=== PATIENT | female | born 1930 | race Two or more races ===

== ENCOUNTER 2017-02-13 16:06 | Inpatient (IN) | payer MEDICARE, MEDICAID ==
[~2017-02-13] VITALS: Ht 149.9 cm; Wt 35.4 kg
[~2017-02-13 16:06] MED LIST: ACETAMINOPHEN120 MG RECTAL; ARICEPT5 MG PO; ATIVAN0.5 MG PO; CLONIDINE0.1 MG PO; DEPAKOTE125 MG PO; ENALAPRIL MALEA20 MG PO; HYDRALAZINE HCL25 M1 PO; LOVENOX10 MG SUBQ; MULTIVITAMINS1 EAC8 PO; RISPERDAL0.5 MG PO; ROCEPHIN 11 GM/50 ML IVPB; TYLENOL325 MG ORAL; TYLENOL650 MG/20. ORAL; VICODIN 5-3001 EACH ORAL; VITAMIN C500 M1 ORAL
[2017-02-13 16:31] LABS: MEAN CORPUSCULAR HEMOGLOBIN 27.5 PG (27.0-31.0); MEAN CORPUSCULAR HGB CONC 31.1 G/DL (32.0-36.0); MEAN CORPUSCULAR VOLUME 88 FL (80-99); MEAN PLATELET VOLUME 6.7 FL (6.5-10.1); PLATELET COUNT 316 K/UL (150-450); RED BLOOD COUNT 5.33 M/UL (4.20-5.40); RED CELL DISTRIBUTION WIDTH 16.7 % (11.6-14.8)
--- NOTE | 2017-02-13 16:34 | Diagnostic Imaging Report ---
Indication: SOB Technique: One view of the chest Comparison: 12/08/2012 and 10/14/2012 Findings: Questionable one or more nodular opacities seen in the left midlung. Larger of these is probably evident on the 10/14/2012 prior exam, but is equivocally larger and more conspicuous currently. The lungs and pleural spaces are otherwise clear. There are cholecystectomy clips. The heart size is normal. The aorta is tortuous and calcified. There are old posttraumatic changes of the right and possibly left shoulder Impression: One or more left midlung nodules, equivocally increased since prior exam of 2012. Consider further evaluation with chest CT if clinically indicated No acute process otherwise Other findings as noted
[2017-02-13 16:46] LABS: TROPONIN I < 0.30 ng/mL (<=0.30)
[2017-02-13 16:49] VITALS: BP 107/55
[2017-02-13 16:49] LABS: ALANINE AMINOTRANSFERASE 42 U/L (3-33); ALBUMIN/GLOBULIN RATIO 0.7 (1.0-2.7); ANION GAP 21 (5-15); ASPARTATE AMINO TRANSFERASE 51 U/L (5-40); CALCIUM 9.2 mg/dL (8.6-10.2); CARBON DIOXIDE 18 mEQ/L (20-30); CHLORIDE 129 mEQ/L (98-107); CREATININE 2.4 mg/dL (0.5-0.9); HEMOLYSIS 74; POTASSIUM 4.8 mEQ/L (3.4-4.9)
[2017-02-13 16:57] LABS: SODIUM 168 mEQ/L (135-145)
[2017-02-13 16:59] LABS: REFLEX LACTIC ACID YES OR NO YES
[2017-02-13 17:00] LABS: CKMB 2.2 ng/mL (< 3.8)
[2017-02-13] MEDS ORDERED: Cefepime HCl 1 GM in NS 55 ML IV ONE (17:00)
[2017-02-13] MEDS ORDERED: Azithromycin 500 MG in NS 275 ML IV ONE (17:00)
[2017-02-13] MEDS ORDERED: Cefepime 1gm vial ONE (17:06)
[2017-02-13] MEDS ORDERED: Azithromycin Inj IV ONE (17:06)
[2017-02-13 17:52] VITALS: BP 95/66
[2017-02-13 18:23] LABS: ANISOCYTOSIS 1+; BAND NEUTROPHILS % (MANUAL) 2 % (0-8); BASOPHILS % (MANUAL) 0 % (0-2); EOSINOPHILS % (MANUAL) 0 % (0-3); LYMPHOCYTES % (MANUAL) 22 % (20-45); NEUTROPHILS % (MANUAL) 72 % (45-75); PLATELET ESTIMATE ADEQUATE; PLATELET MORPHOLOGY NORMAL; TOTAL CELLS COUNTED 100
--- NOTE | 2017-02-13 18:28 | Emergency Room Report ---
History of Present Illness General Chief Complaint: Dyspnea/Respdistress Source: Medical Record, EMS Present Illness HPI 86-year-old female presents to ED for respiratory distress. Patient came from [facility] with shortness of breath. Today. Per EMS patient had crackles on exam. Patient has dementia and is unable to provide any history at this time. No reported fevers chills. No chest pain. No aggravating relieving factors. Denies any other associated symptoms Allergies: Coded Allergies: No Known Allergies (Unverified , 10/14/12) Patient History Past Medical History: HTN, dementia, psych hx Past Surgical History: none Pertinent Family History: none Social History: Denies: alcohol use, drug use, smoking Last Menstrual Period: na Now: No Immunizations: UTD Reviewed Nursing Documentation: PMH: Agreed, PSxH: Agreed Nursing Documentation-PMH Past Medical History: No History, Except For Hx Cardiac Problems: Yes - anemia Hx Hypertension: Yes History Of Psychiatric Problem: Yes - psychosis Hx Neurological Problems: Yes - Parkinsons Hx Dementia: Yes Hx Paralysis: Yes Review of Systems All Other Systems: negative except mentioned in HPI Physical Exam Vital Signs Date Time Temp Pulse Resp B/P Pulse Ox O2 Delivery O2 Flow Rate FiO2 02/13/17 16:03 126 30 104/76 85 Non-Rebreather 02/13/17 16:10 100 02/13/17 16:49 102.3 Sp02 EP Interpretation: reviewed, normal General Appearance: mild distress, thin Head: normocephalic Eyes: bilateral eye PERRL, bilateral eye normal inspection ENT: normal ENT inspection Neck: normal inspection Respiratory: accessory muscle use, crackles Cardiovascular #1: tachycardia Gastrointestinal: normal inspection Rectal: deferred Genitourinary: no CVA tenderness Musculoskeletal: normal inspection Neurologic: other - psychosis Psychiatric: other - psychosis Skin: normal inspection Lymphatic: normal inspection Procedures Critical Care Time Critical Care Time i. I feel this is a highly complex case requiring extensive working including EKG/Rhythm strip, Xray/CT/US, Blood/urine lab work, repeat exams while in ED, and administration of strong opiates/narcotics for pain control, admission to hospital or close patient follow up. Total time: 30 min bedside evaluation and treatment excludes procedures (EKG). Reason for critical care: respiratory distress. tachycardia Possible complications: hypotension, hypertension, LA, shock, arrhythmias, metabolic acidosis, end organ damage, respiratory failure. Interventions: labs, IVFs, EKG, CXR. BIPAP. antibiotics Course: patient here with resp distress. started on BIPAP. lactate markedly elevated. BUN/Cr elevated. abx given. Consultations: nursing staff, EMS, family Performed by: Dr Fitzgerald Tolerated well condition = serious j. because of unstable vital signs this patient had a condition that could potentially threaten life or limb. I feel this is a critical patient who required my full attention while patient was considered critical. Total Critical Care Time excluding procedures was greater than 35 minutes Medical Decision Making Diagnostic Impression: Primary Impression: Encephalopathy acute Additional Impressions: Respiratory distress Severe sepsis Acute renal failure (ARF) Qualified Codes: N17.9 - Acute kidney failure, unspecified ER Course Hospital Course 86-year-old F presenting to ED with respiratory distress, hypoxic Differential diagnoses include: Pneumonia, CHF exacerbation, pneumothorax, fluid overload Clinical course Patient placed on stretcher. On playground monitor with hypoxia on room air and tachycardia. After initial history and physical, I ordered BIPAP. I ordered labs, IV fluids, EKG, chest x-ray, blood cultures, UA. Labs -leukocytosis noted, hemoglobin/hematocrit stable, BUN/cR elevated, lactate > 5, BNP elevated, Troponins negative CXR - no infiltrate identified. L midlung nodules noted EKG - sinus tachycardia, ST depressions noted given abx. given tachycardia improving with IV fluids. given tylenol rectal Case discussed with Dr. Cardoza and he agreed to the patient to his service for further care and support I feel this is a highly complex case requiring extensive working including EKG/ Rhythm strip, Xray/CT/US, Blood/urine lab work, repeat exams while in ED, and administration of strong opiates/narcotics for pain control, admission to hospital or close patient follow up. Diagnosis - acute encepahlopathy, respiratory distress, severe sepsis, ARF Patient admitted to [facility] in serious condition Labs Test 02/13/17 16:11 02/13/17 17:00 White Blood Count 21.0 K/UL (4.8-10.8) Red Blood Count 5.33 M/UL (4.20-5.40) Hemoglobin 14.7 G/DL (12.0-16.0) Hematocrit 47.1 % (37.0-47.0) Mean Corpuscular Volume 88 FL (80-99) Mean Corpuscular Hemoglobin 27.5 PG (27.0-31.0) Mean Corpuscular Hemoglobin Concent 31.1 G/DL (32.0-36.0) Red Cell Distribution Width 16.7 % (11.6-14.8) Platelet Count 316 K/UL (150-450) Mean Platelet Volume 6.7 FL (6.5-10.1) Neutrophils (%) (Auto) % (45.0-75.0) Lymphocytes (%) (Auto) % (20.0-45.0) Monocytes (%) (Auto) % (1.0-10.0) Eosinophils (%) (Auto) % (0.0-3.0) Basophils (%) (Auto) % (0.0-2.0) Sodium Level 168 mEQ/L (135-145) Potassium Level 4.8 mEQ/L (3.4-4.9) Chloride Level 129 mEQ/L (98-107) Carbon Dioxide Level 18 mEQ/L (20-30) Anion Gap 21 (5-15) Blood Urea Nitrogen 80 mg/dL (7-23) Creatinine 2.4 mg/dL (0.5-0.9) Estimat Glomerular Filtration Rate mL/min (>60) Glucose Level 218 mg/dL (74-106) Lactic Acid Level 5.90 mmol/L (0.66-2.22) 6.30 mmol/L (0.66-2.22) Calcium Level 9.2 mg/dL (8.6-10.2) Total Bilirubin 0.6 mg/dL (0.0-1.2) Aspartate Amino Transf (AST/SGOT) 51 U/L (5-40) Alanine Aminotransferase (ALT/SGPT) 42 U/L (3-33) Alkaline Phosphatase 90 U/L (35-104) Total Creatine Kinase 41 U/L (26-140) Creatine Kinase MB 2.2 ng/mL (< 3.8) Creatine Kinase MB Relative Index 5.3 Troponin I < 0.30 ng/mL (<=0.30) Pro-B-Type Natriuretic Peptide 5951 pg/mL (0-450) Total Protein 8.0 g/dL (6.6-8.7) Albumin 3.5 g/dL (3.5-5.2) Globulin 4.5 g/dL Albumin/Globulin Ratio 0.7 (1.0-2.7) EKG Diagnostic Results Rate: tachycardiac Rhythm: NSR ST Segments: other - ST depressions in lateral leads ASA given to the pt in ED: No Rhythm Strip Diag. Results EP Interpretation: yes Rhythm: NSR, no PVC's, no ectopy Chest X-Ray Diagnostic Results Chest X-Ray Ordered: Yes # of Views/Limited/Complete: 1 View Interpretation: no consolidation, no effusion, no pneumothorax, no acute cardiopulmonary disease Indication: Shortness of Breath Impression: Other - left midlung nodules Date Electronically Signed: Feb 13, 2017 Time Electronically Signed: 18:24 Interpreting ER Physician: Avtar Hubbard MD Last Vital Signs Date Time Temp Pulse Resp B/P Pulse Ox O2 Delivery O2 Flow Rate FiO2 02/13/17 17:52 100 38 95/66 99 Bi-pap 100 02/13/17 16:49 102.3 Status: improved Disposition: ADMITTED INPATIENT Condition: Serious Referrals: JADYN WALLIS (PCP) AVTAR FITZGERALD M.D. Feb 13, 2017 18:28
[2017-02-13] MEDS ORDERED: Acetaminophen 650 MG SUPP RECTAL ONE (18:30)
[2017-02-13 19:15] VITALS: BP 160/88
[2017-02-13] MEDS ORDERED: DOCUSATE SODIU100 MG ORAL (19:20)
[2017-02-13] MEDS ORDERED: ACETAMINOPHEN325 M1 ORAL (19:20)
[2017-02-13] MEDS ORDERED: CATAPRES0.1 MG ORAL (19:20)
[2017-02-13] MEDS ORDERED: PRO-STAT AWC LI30 ML PO (19:20)
[2017-02-13] MEDS ORDERED: MILK OF MA2400 MG/10 ORAL (19:20)
[2017-02-13] MEDS ORDERED: ALENDRONATE SOD70 MG ORAL (19:20)
[2017-02-13] MEDS ORDERED: CALCIUM 500 +1 EAC5 PO (19:20)
[2017-02-13 20:00] VITALS: BP 143/86
[2017-02-13] MEDS ORDERED: DuoNeb 0.5-3(2.5)mg/3ml neb HHN PRN (20:00)
[2017-02-13 20:14] LABS: ABG ALLEN TEST POSITIVE; ABG BASE EXCESS -7.6
[2017-02-13] MEDS ORDERED: Vancomycin 1gm/D5W 275ml IVPB ONE ×2 (21:00)
[2017-02-13] MEDS: Heparin 5000 units/ml inj SUBQ SCH (21:33)
[2017-02-13] MEDS: Piperacillin/Tazobactam 3.375 GM in D5W 110 ML IVPB SCH (22:50)
[2017-02-14] VITALS (7 sets, daily range): BP systolic 115–156; BP diastolic 61–99
[2017-02-14] MEDS: Docusate 100mg cap ORAL SCH ×2 (08:10→17:04)
[2017-02-14] MEDS: Multivitamin w/Minerals tab ORAL SCH (08:11)
[2017-02-14] MEDS: Heparin 5000 units/ml inj SUBQ SCH ×2 (08:17→21:41)
[2017-02-14] MEDS: Piperacillin/Tazobactam 3.375 GM in D5W 110 ML IVPB SCH ×2 (08:17→21:39)
[2017-02-14 08:53] LABS: ABG ALLEN TEST POSITIVE; ABG BASE EXCESS -7.6; ABG PCO2 27.1 mmHg (35.0-45.0)
--- NOTE | 2017-02-14 10:00 | History and Physical Report ---
DATE OF ADMISSION: 02/13/2017 CHIEF COMPLAINT: Respiratory failure, pneumonia, sepsis and toxic metabolic encephalopathy. HISTORY OF PRESENT ILLNESS: The patient is an 86-year-old female. She has a history of dementia, chronic kidney disease, prior history of femur fracture, anemia, and encephalopathy. She was transferred from a care home facility with shortness of breath. On evaluation in the emergency room, the patient had an x-ray that showed pneumonia. She was short of breath and hypoxic eventually require placement on the BiPAP. Laboratory test showed severe lactic acidosis. Sodium 168 and creatinine of 2.4. The patient has been started on BiPAP, fluid resuscitation, and broad-spectrum IV antibiotics and is now admitted for further evaluation and care. She is confused at baseline history. PAST MEDICAL HISTORY: As above. PAST SURGICAL HISTORY: Unknown. MEDICATIONS: Current medications reconciled and reviewed. ALLERGIES: None, SOCIAL HISTORY: There is no known history of tobacco, ethanol, or drugs. FAMILY HISTORY: None. REVIEW OF SYSTEMS: Review of systems from the patient is unobtainable. PHYSICAL EXAMINATION: VITAL SIGNS: Temperature 98.0 degrees, blood pressure 142/88, pulse of 84, and respirations 20. GENERAL: The patient is in no distress. She is on BiPAP and alert. NECK: Supple. HEART: Regular rate and rhythm. LUNGS: Lungs are clear. ABDOMEN: Soft, nontender and nondistended. EXTREMITIES: Without clubbing, cyanosis, or edema. LABORATORY DATA: Sodium is 168, potassium 4.8, chloride 129, bicarb 18, BUN 80, creatinine is 2.4 and lactic acid level is 6.3. Natriuretic peptide level was 6000. ASSESSMENT: This is an unfortunate female admitted with: 1. Sepsis. 2. Pneumonia. 3. Respiratory failure. 4. Hypernatremia. 5. Acute renal failure. 6. Toxic metabolic encephalopathy. 7. Severe metabolic acidosis secondary to lactic acidosis. PLAN: Continue BiPAP. We will wean IV fluids, IV antibiotics. Monitor renal function. Monitor chest x-ray. We will follow pending cultures. I have attempted to call the patient's grandson and son, but there has been no answer on their cell phones. The patient's status is currently critical and guarded. She is apparently Full Code. Amado Cardoza M.D. DR: [place] JOB#: [id number] CC:
[2017-02-14 16:31] LABS: KETONES,URINE NEGATIVE (NEGATIVE); LEUKOCYTE ESTERASE ,URINE 3+ (NEGATIVE); NITRITE,URINE NEGATIVE (NEGATIVE); PH,URINE 6 (4.5-8.0); PROTEIN,URINE 3+ (NEGATIVE); UROBILINOGEN,URINE NORMAL MG/DL (0.0-1.0)
[2017-02-14 16:48] LABS: APPEARANCE,URINE CLOUDY
[2017-02-14 16:49] LABS: BACTERIA,URINE MANY /HPF; RBC,URINE 60-80 /HPF (0 - 2); SQUAMOUS EPITHELIAL CELL,UR FEW /LPF (NONE/OCC); WBC,URINE TNTC /HPF (0 - 2)
[2017-02-14] MEDS ORDERED: Azithromycin 250 MG in D5W 275 ML IV SCH (17:00)
--- NOTE | 2017-02-14 21:30 | Progress Note ---
DATE: 02/14/2017 CARDIOLOGY PROGRESS NOTE: SUBJECTIVE: The patient remains withdrawn and noncommunicative. She continues to be remained with severe electrolyte disturbances and congestion. She is on BiPAP support. Monitor sinus and sinus tachycardia. OBJECTIVE: VITAL SIGNS: Blood pressure is 115/65, pulse 58, respiratory rate 19, and afebrile. CHEST: Coarse breath sounds. Scattered rhonchi. HEART: Regular rhythm and rate. Normal S1 and S2. ABDOMEN: Soft. G-tube is intact. EXTREMITIES: With no edema. IMPRESSION: 1. Sepsis. 2. Urinary tract infection. 3. Severe dehydration. 4. Hypernatremia. 5. Hypovolemia. 6. Hyperchloremia. 7. Acute renal failure. 8. Lactic acidosis. 9. Chronic diastolic congestive heart failure. 10. Remains critical with guarded prognosis. 11. Acute myocardial ischemia due to hypoperfusion. PLAN: 1. Respiratory therapy. 2. BiPAP support. 3. Broad-spectrum antibiotics. 4. Hypotonic IV fluid hydration. 5. Deep venous thrombosis and stress ulcer prophylaxis. 6. No role for any diuresis and antihypertensives at this time. 7. Repeat laboratory studies ordered including troponin level. Chacho Marinelli M.D. DR: Fidelia JOB#: [id number] CC:
--- NOTE | 2017-02-14 21:30 | Consultation ---
DATE OF CONSULTATION: 02/14/2017 INFECTIOUS DISEASE CONSULTATION PRIMARY ATTENDING PHYSICIAN: Amado Cardoza M.D. This consult is for coverage of Dr. Alva. REASON FOR CONSULT: Sepsis. HISTORY OF PRESENT ILLNESS: The patient is an 86-year-old female who is a [facility] resident admitted yesterday because of shortness of breath. At the time of admission, she had a fever of 102.3 degrees, leukocytosis, and tachycardia. The patient is in respiratory distress and respiratory failure and was put on BiPAP for a while. Currently, he is off BiPAP, seems to be comfortable. PAST MEDICAL HISTORY: Significant for dementia with psychosis, anemia, Parkinson's disease, and hypertension. MEDICATIONS: Azithromycin, Colace, multivitamin, Protonix, Zosyn, heparin, vancomycin, Tylenol, clonidine, and Duo-Neb inhaler. ALLERGIES: No known drug allergy. SOCIAL HISTORY: detention resident with poor mental and functional status. REVIEW OF SYSTEMS: Not obtainable. PHYSICAL EXAMINATION: GENERAL APPEARANCE: No acute distress, seems to be cachectic. BMI is 15.8. VITAL SIGNS: Temperature 98.1 degrees, pulse 58, and blood pressure 145/84. HEAD AND NECK: [place] conjunctivae. HEART: Regular. LUNGS: Clear. ABDOMEN: Soft and nontender. EXTREMITIES: No edema. SKIN: Some skin tears. LABORATORY AND DIAGNOSTIC DATA: Sodium 168, potassium 4.8, chloride 129, bicarbonate 18, BUN 80, creatinine 2.4, and glucose 218. Lactic acid 6.3. Albumin is 3.5. WBC 21,000, hemoglobin 14.7, hematocrit 47.1, and platelet is 316,000. Chest x-ray showed pulmonary nodules. Cultures are pending. IMPRESSION: 1. Sepsis. 2. Fever. 3. Leukocytosis, source is not clear now, will send urinalysis and urine culture. 4. The patient has acute renal failure. 5. Hypernatremia. 6. Dementia and psychosis. 7. Parkinson disease. 8. Lactic acidosis. RECOMMENDATION: We will continue with current medication, vancomycin, Zosyn and Zithromax. We will follow up the cultures. I thank, Dr. Cardoza, for involving me in the care of this patient. Willie Coleman M.D. DR: VIDA JOB#: [id number] CC: BO
--- NOTE | 2017-02-14 22:15 | Consultation ---
DATE OF CONSULTATION: 02/13/2017 CARDIOLOGY CONSULTATION NOTE CONSULTING PHYSICIAN: Chacho Marinelli M.D. ATTENDING PHYSICIAN: REFERRING PHYSICIAN: 1. Amado Cardoza M.D. 2. Derrick Mccurdy M.D. REASON FOR EVALUATION: Tachyarrhythmia and severe dehydration. HISTORY OF PRESENT ILLNESS: This is an 86-year-old, female, who resides at a intermediate facility. She was transferred to the emergency room for evaluation by 911 for respiratory distress. She was not able to provide history due to underlying dementia and prior hospital records as well as intermediate chart was reviewed for the details. In the emergency room, diagnostic workup was undertaken and her presenting vital signs included a blood pressure of 104/76, heart rate 122, and respiratory rate of 30. She was febrile to 102.3. EKG revealed sinus tachycardia with ST-T wave changes. Chest x-ray revealed left mid lung nodules possibly increased from 2012, but otherwise no acute process. She has significant laboratory abnormalities and the patient was admitted for further care. I have been asked to assist for cardiovascular management. Concern is raised over her laboratory studies and elevated natriuretic peptide assay of 5951. PAST MEDICAL HISTORY: Includes hypertension, cerebrovascular disease, dementia with psychosis, Parkinson disease, and anemia of chronic disease. ALLERGIES: None known. FAMILY HISTORY: Noncontributory. SOCIAL HISTORY: No record of smoking, alcohol, or substance abuse. MEDICATIONS: Prior to admission, reviewed and reconciled. REVIEW OF SYSTEMS: Cannot be reliably obtained from the patient as noted above. Pertinent data from review of records is noted. PHYSICAL EXAMINATION: VITALS SIGNS: As noted above. HEENT: Temporal wasting. Pale conjunctivae. Oropharynx clear. Mucous membranes dry. NECK: Supple. There is accessory muscle use. LUNGS: With coarse breath sounds and bilateral rales. CARDIAC: Regular rhythm. Rapid rate. Normal S1 and S2 with a fourth heart sound. ABDOMEN: Soft and nontender with a G-tube. EXTREMITIES: Diminished distal pulses. Decreased capillary refill. No edema. NEUROLOGIC: Reveals moderate cognitive impairment with dementia. Symmetric. Moves extremity to pain. LABORATORY DATA: Lactic acid is 6.5, white count 21, hemoglobin 14.7. Sodium 168, potassium 4.8, bicarb 18, chloride 129, BUN 8, creatinine 2.4, glucose 218. Albumin 3.5. UA with too numerous to count white cells. IMPRESSION: 1. Severe sepsis with shock. 2. Severe dehydration. 3. Hypervolemia. 4. Urinary tract infection. 5. Hypernatremia. 6. Hyperchloremia. 7. Acute renal failure due to acute tubular necrosis. 8. Diabetes mellitus. 9. Hyperglycemia. 10. Acute myocardial ischemia. 11. Secondary sinus tachycardia. 12. Cerebrovascular disease with dementia. 13. Critical and guarded. 14. Elevated natriuretic peptide assay likely due to chronic diastolic dysfunction in the setting of renal failure. PLAN: 1. Cardiac monitoring. 2. [facility] care. 3. Hypotonic fluid resuscitation. 4. Broad-spectrum antibiotics. 5. DVT and stress ulcer prophylaxis. 6. Insulin coverage by sliding scale. 7. BiPAP support as needed. 8. Followup laboratory studies including troponin level. 9. No role for diuretic therapy at this time. Chacho Marinelli M.D. DR: JENNIFER JOB#: [id number] CC:
--- NOTE | 2017-02-15 00:31 | Wound Care Consultation ---
Wound Assessment Wound Assessment #1: Wound Present on Admission: Yes New Wound: No Status Change of Wound: No Wound Location Body Site Modif: mid Wound Location Body Site: sacral Wound Type: pressure ulcer Kelsi Test: Does not Kelsi Wound Thickness: Full Thickness - scar tissue Wound Length: 8.0 Wound Width: 8.5 Wound Depth: utd Percent of Wound [place]/Red: 100 Wound Drainage Amount: None Wound Drainage Odor: None/Absent Tissue Surrounding Wound: Intact Wound General Appearance: Asymptomatic, Open to air Wound Assessment #2: Wound Number: #2 Wound Present on Admission: Yes New Wound: No Status Change of Wound: No Wound Location Body Site Modif: right Wound Location Body Site: shoulder Wound Type: pressure ulcer Kelsi Test: Does not Kelsi Pressure Ulcer Stage: I Wound Length: 3.0 Wound Width: 2.5 Percent of Wound [place]/Red: 100 Wound Drainage Amount: None Wound Drainage Odor: None/Absent Tissue Surrounding Wound: Intact Wound General Appearance: Reddened Wound Assessment #3: Wound Number: #3 Wound Present on Admission: Yes New Wound: No Status Change of Wound: No Wound Location Body Site Modif: left Wound Location Body Site: other - forarm Wound Type: traumatic injury Kelsi Test: Does not Kelsi Traumatic Injury Wounds: Skin Tear Wound Thickness: Partial Thickness Wound Length: 2.0 Wound Width: 1.5 Wound Depth: less than 0.1 Percent of Wound [place]/Red: 100 Wound Drainage Description: Serosanguineous Wound Drainage Amount: Scant Wound Drainage Odor: None/Absent Tissue Surrounding Wound: Intact Wound General Appearance: Reddened Wound Assessment #4: Wound Number: #4 Wound Present on Admission: Yes New Wound: No Status Change of Wound: No Wound Location Body Site Modif: right Wound Location Body Site: other - forearm Wound Type: scab Kelsi Test: Does not Kelsi Wound Thickness: Partial Thickness Wound Length: 0.5 Wound Width: 0.5 Percent of Wound Bed [place]/Wh: 100 Wound Drainage Amount: None Wound Drainage Odor: None/Absent Tissue Surrounding Wound: Intact Wound General Appearance: Asymptomatic Wound Comment #1 Right shoulder stage I, non-blanchable redness pressure ulcer #2 Sacral area with full thickness scar tissue pressure ulcer #3 Right forearm skin tear with scab #4 Left forearm skin tear with partial thickness skin loss Recommendation -Skin tear on left and right forearm Cleanse with saline, pat dry, apply adaptic, cover with bordered gauze daily and PRN soiled/dislodged -Keep clean and dry -Turn and reposition -Optimize nutrition -Offload both heels -Heel protector on both heels -Low air loss mattress -Assess and f/u accordingly for any changes MARY ALLEN RN Feb 15, 2017 00:31
[2017-02-15 03:55] VITALS: BP 153/67
[2017-02-15 05:29] LABS: BASOPHILS % (AUTO) 0.4 % (0.0-2.0); EOSINOPHILS % (AUTO) 2.1 % (0.0-3.0); LYMPHOCYTES % (AUTO) 12.3 % (20.0-45.0); MEAN CORPUSCULAR HEMOGLOBIN 27.9 PG (27.0-31.0); MEAN CORPUSCULAR HGB CONC 31.7 G/DL (32.0-36.0); MEAN CORPUSCULAR VOLUME 88 FL (80-99); MEAN PLATELET VOLUME 7.5 FL (6.5-10.1); NEUTROPHILS % (AUTO) 81.3 % (45.0-75.0); PLATELET COUNT 152 K/UL (150-450); RED CELL DISTRIBUTION WIDTH 16.5 % (11.6-14.8); WHITE BLOOD COUNT 11.5 K/UL (4.8-10.8)
[2017-02-15 05:53] LABS: ALANINE AMINOTRANSFERASE 19 U/L (3-33); ALBUMIN/GLOBULIN RATIO 0.6 (1.0-2.7); ANION GAP 19 (5-15); ASPARTATE AMINO TRANSFERASE 19 U/L (5-40); CALCIUM 7.9 mg/dL (8.6-10.2); CARBON DIOXIDE 16 mEQ/L (20-30); CHLORIDE 128 mEQ/L (98-107); CREATININE 1.5 mg/dL (0.5-0.9); HEMOLYSIS 7; POTASSIUM 3.3 mEQ/L (3.4-4.9); TOTAL PROTEIN 5.5 g/dL (6.6-8.7)
[2017-02-15 06:10] LABS: SODIUM 163 mEQ/L (135-145)
[2017-02-15 06:45] LABS: TROPONIN I < 0.30 ng/mL (<=0.30)
[2017-02-15] MEDS ORDERED: Vancomycin 750mg/D5W 275ml IVPB ONE ×2 (08:00)
--- NOTE | 2017-02-15 08:20 | General Progress Note ---
Assessment/Plan Problem List: (1) Hypernatremia ICD Codes: E87.0 - Hyperosmolality and hypernatremia SNOMED: 32642339 (2) UTI (urinary tract infection) ICD Codes: N39.0 - Urinary tract infection, site not specified SNOMED: 58901863 (3) Dehydration ICD Codes: E86.0 - Dehydration SNOMED: 58544404 (4) Anemia ICD Codes: D64.9 - Anemia, unspecified SNOMED: 704846786 (5) Fracture of distal femur ICD Codes: S72.409A - Unspecified fracture of lower end of unspecified femur, initial encounter for closed fracture SNOMED: 354495073 (6) Severe sepsis ICD Codes: A41.9 - Sepsis, unspecified organism; R65.20 - Severe sepsis without septic shock SNOMED: 54621265 (7) Acute renal failure (ARF) ICD Codes: N17.9 - Acute kidney failure, unspecified SNOMED: 34459526 Qualifiers: Qualified Codes: N17.9 - Acute kidney failure, unspecified Status: stable Assessment/Plan ivf adjusted repeat lytes in the afternoon iv abx follow up cultures resp care check swallow Subjective ROS Limited/Unobtainable: Yes Constitutional: Reports: malaise, weakness HEENT: Reports: no symptoms Cardiovascular: Reports: no symptoms Respiratory: Reports: no symptoms Gastrointestinal/Abdominal: Reports: difficulty swallowing Genitourinary: Reports: no symptoms Neurologic/Psychiatric: Reports: pre-existing deficit Endocrine: Reports: no symptoms Hematologic/Lymphatic: Reports: anemia Allergies: Coded Allergies: No Known Allergies (Unverified , 10/14/12) All Systems: reviewed and negative except above Subjective no events. more alert. stable on room air. remains combative. awaiting swallow eval Objective Last 24 Hour Vital Signs Date Time Temp Pulse Resp B/P Pulse Ox O2 Delivery O2 Flow Rate FiO2 02/15/17 06:55 95 Room Air 21 02/15/17 06:55 Room Air 02/15/17 04:00 57 02/15/17 03:55 96.9 57 20 153/67 96 Room Air 02/15/17 00:00 57 02/14/17 23:47 97.5 64 20 137/61 92 02/14/17 20:00 60 02/14/17 19:49 97.1 65 18 130/99 94 02/14/17 19:00 94 Room Air 21 02/14/17 19:00 Room Air 02/14/17 16:59 94 Room Air 21 02/14/17 16:00 58 02/14/17 15:51 97.1 58 19 115/65 97 Room Air 02/14/17 12:00 62 02/14/17 11:38 98.1 58 18 145/84 98 Room Air 02/14/17 09:39 Venturi Mask 12.0 50 02/14/17 09:39 96 Venturi Mask 12.0 50 Intake and Output 02/14/17 02/15/17 19:00 07:00 Intake Total 1885.0 ml 1085.0 ml Output Total 300 ml 250 ml Balance 1585.0 ml 835.0 ml IV Total 1885.0 ml 1085.0 ml Output Urine Total 300 ml 250 ml # Bowel Movements 2 4 Laboratory Tests 02/14/17 08:50: Arterial Blood pH 7.389, Arterial Blood Partial Pressure CO2 27.1L, Arterial Blood Partial Pressure O2 233.6H, Arterial Blood HCO3 16.0L, Arterial Blood Oxygen Saturation 99.0H, Arterial Blood Base Excess -7.6, Theodore Test Positive 02/14/17 15:00: Urine Color Pale yellow, Urine Appearance Cloudy, Urine pH 6, Urine Specific [place] 1.015, Urine Protein 3+H, Urine Glucose (UA) Negative, Urine Ketones Negative, Urine Occult Blood 4+H, Urine Nitrite Negative, Urine Bilirubin Negative, Urine Urobilinogen Normal, Urine Leukocyte Esterase 3+H, Urine RBC 60- 80H, Urine WBC TntcH, Urine Squamous Epithelial Cells Few, Urine Bacteria ManyH 02/15/17 03:30: White Blood Count 11.5H, Red Blood Count 3.40L, Hemoglobin 9.5#L, Hematocrit 30.0#L, Mean Corpuscular Volume 88, Mean Corpuscular Hemoglobin 27.9, Mean Corpuscular Hemoglobin Concent 31.7L, Red Cell Distribution Width 16.5H, Platelet Count 152#, Mean Platelet Volume 7.5, Neutrophils (%) (Auto) 81.3H, Lymphocytes (%) (Auto) 12.3L, Monocytes (%) (Auto) 4.0, Eosinophils (%) (Auto) 2.1, Basophils (%) (Auto) 0.4, Sodium Level 163*H, Potassium Level 3.3L, Chloride Level 128H, Carbon Dioxide Level 16L, Anion Gap 19H, Blood Urea Nitrogen 51#H, Creatinine 1.5H, Estimat Glomerular Filtration Rate , Glucose Level 88#, Calcium Level 7.9L, Total Bilirubin 0.5, Aspartate Amino Transf (AST/ SGOT) 19, Alanine Aminotransferase (ALT/SGPT) 19, Alkaline Phosphatase 59, Troponin I < 0.30, Total Protein 5.5#L, Albumin 2.2L, Globulin 3.3, Albumin/ Globulin Ratio 0.6L, Random Vancomycin Level 13.9 Height (Feet): 4 Height (Inches): 11.00 Weight (Pounds): 78 General Appearance: WD/WN, confused, cachetic, thin Neck: supple Cardiovascular: normal rate Respiratory/Chest: lungs clear, no respiratory distress, no accessory muscle use Abdomen: normal bowel sounds, non tender, soft, no organomegaly Edema: no edema noted Arm (L), no edema noted Arm (R), no edema noted Leg (L), no edema noted Leg (R), no edema noted Pedal (L), no edema noted Pedal (R), no edema noted Generalized JOSHUA SEVERINO Feb 15, 2017 08:20
[2017-02-15 08:28] VITALS: BP 153/77
[2017-02-15] MEDS: Heparin 5000 units/ml inj SUBQ SCH ×2 (08:53→21:43)
[2017-02-15] MEDS: Docusate 100mg cap ORAL SCH (09:00)
[2017-02-15] MEDS: Multivitamin w/Minerals tab ORAL SCH (09:00)
[2017-02-15 09:35] LABS: ALANINE AMINOTRANSFERASE 19 U/L (3-33); ALBUMIN/GLOBULIN RATIO 0.8 (1.0-2.7); ANION GAP 15 (5-15); ASPARTATE AMINO TRANSFERASE 20 U/L (5-40); CARBON DIOXIDE 19 mEQ/L (20-30); CHLORIDE 124 mEQ/L (98-107); CREATININE 1.4 mg/dL (0.5-0.9); HEMOLYSIS 0; POTASSIUM 3.2 mEQ/L (3.4-4.9); SODIUM 158 mEQ/L (135-145); TOTAL PROTEIN 5.8 g/dL (6.6-8.7)
[2017-02-15] MEDS: Piperacillin/Tazobactam 3.375 GM in D5W 110 ML IVPB SCH ×2 (09:55→21:41)
[2017-02-15] MEDS: D5W w/KCl 20mEq 1,000 ML IV SCH ×2 (09:55→20:17)
--- NOTE | 2017-02-15 10:53 | Infectious Diseases Prog Note ---
Assessment/Plan Assessment/Plan antibiotics : vancomycin iv, zosyn, azithromycin A 1. UTI 2. leucocytosis improving 3. renal failure improving 4. Parkinsons disease 5. HTN P 1. continue zosyn 2. d/c iv vancomycin, azithromycin 3. will follow up cultures Subjective ROS Limited/Unobtainable: Yes Allergies: Coded Allergies: No Known Allergies (Unverified , 10/14/12) Objective Vital Signs Last 24 Hour Vital Signs Date Time Temp Pulse Resp B/P Pulse Ox O2 Delivery O2 Flow Rate FiO2 02/15/17 08:28 97.2 56 18 153/77 94 Room Air 02/15/17 08:00 52 02/15/17 06:55 95 Room Air 21 02/15/17 06:55 Room Air 02/15/17 04:00 57 02/15/17 03:55 96.9 57 20 153/67 96 Room Air 02/15/17 00:00 57 02/14/17 23:47 97.5 64 20 137/61 92 02/14/17 20:00 60 02/14/17 19:49 97.1 65 18 130/99 94 02/14/17 19:00 94 Room Air 21 02/14/17 19:00 Room Air 02/14/17 16:59 94 Room Air 21 02/14/17 16:00 58 02/14/17 15:51 97.1 58 19 115/65 97 Room Air 02/14/17 12:00 62 02/14/17 11:38 98.1 58 18 145/84 98 Room Air Height (Feet): 4 Height (Inches): 11.00 Weight (Pounds): 78 Respiratory/Chest: rhonchi - bilaterally Cardiovascular: normal rate, regular rhythm, no gallop/murmur Abdomen: soft, non tender Extremities: no edema Microbiology Date/Time Source Procedure Growth Status 02/13/17 16:10 Blood Blood Culture - Preliminary NO GROWTH AFTER 24 HOURS Resulted 02/13/17 16:10 Blood Blood Culture - Preliminary NO GROWTH AFTER 24 HOURS Resulted 02/13/17 18:30 Nasal Nares MRSA Culture - Final NO METHICILLIN RESISTANT STAPH AUREUS... Complete 02/14/17 15:00 Urine,Clean Catch Urine Culture - Preliminary NO GROWTH Resulted Laboratory Tests Test 02/14/17 15:00 02/15/17 03:30 02/15/17 09:05 Urine Color Pale yellow Urine Appearance Cloudy Urine pH 6 (4.5-8.0) Urine Specific [place] 1.015 (1.005-1.035) Urine Protein 3+ (NEGATIVE) H Urine Glucose (UA) Negative (NEGATIVE) Urine Ketones Negative (NEGATIVE) Urine Occult Blood 4+ (NEGATIVE) H Urine Nitrite Negative (NEGATIVE) Urine Bilirubin Negative (NEGATIVE) Urine Urobilinogen Normal MG/DL (0.0-1.0) Urine Leukocyte Esterase 3+ (NEGATIVE) H Urine RBC 60-80 /HPF (0 - 2) H Urine WBC Tntc /HPF (0 - 2) H Urine Squamous Epithelial Cells Few /LPF (NONE/OCC) Urine Bacteria Many /HPF (NONE) H White Blood Count 11.5 K/UL (4.8-10.8) H Red Blood Count 3.40 M/UL (4.20-5.40) L Hemoglobin 9.5 G/DL (12.0-16.0) #L Hematocrit 30.0 % (37.0-47.0) #L Mean Corpuscular Volume 88 FL (80-99) Mean Corpuscular Hemoglobin 27.9 PG (27.0-31.0) Mean Corpuscular Hemoglobin Concent 31.7 G/DL (32.0-36.0) L Red Cell Distribution Width 16.5 % (11.6-14.8) H Platelet Count 152 K/UL (150-450) # Mean Platelet Volume 7.5 FL (6.5-10.1) Neutrophils (%) (Auto) 81.3 % (45.0-75.0) H Lymphocytes (%) (Auto) 12.3 % (20.0-45.0) L Monocytes (%) (Auto) 4.0 % (1.0-10.0) Eosinophils (%) (Auto) 2.1 % (0.0-3.0) Basophils (%) (Auto) 0.4 % (0.0-2.0) Sodium Level 163 mEQ/L (135-145) *H 158 mEQ/L (135-145) H Potassium Level 3.3 mEQ/L (3.4-4.9) L 3.2 mEQ/L (3.4-4.9) L Chloride Level 128 mEQ/L (98-107) H 124 mEQ/L (98-107) H Carbon Dioxide Level 16 mEQ/L (20-30) L 19 mEQ/L (20-30) L Anion Gap 19 (5-15) H 15 (5-15) Blood Urea Nitrogen 51 mg/dL (7-23) #H 45 mg/dL (7-23) H Creatinine 1.5 mg/dL (0.5-0.9) H 1.4 mg/dL (0.5-0.9) H Estimat Glomerular Filtration Rate mL/min (>60) mL/min (>60) Glucose Level 88 mg/dL (74-106) # 105 mg/dL (74-106) Calcium Level 7.9 mg/dL (8.6-10.2) L 8.0 mg/dL (8.6-10.2) L Total Bilirubin 0.5 mg/dL (0.0-1.2) 0.5 mg/dL (0.0-1.2) Aspartate Amino Transf (AST/SGOT) 19 U/L (5-40) 20 U/L (5-40) Alanine Aminotransferase (ALT/SGPT) 19 U/L (3-33) 19 U/L (3-33) Alkaline Phosphatase 59 U/L (35-104) 61 U/L (35-104) Troponin I < 0.30 ng/mL (<=0.30) Total Protein 5.5 g/dL (6.6-8.7) #L 5.8 g/dL (6.6-8.7) L Albumin 2.2 g/dL (3.5-5.2) L 2.6 g/dL (3.5-5.2) L Globulin 3.3 g/dL 3.2 g/dL Albumin/Globulin Ratio 0.6 (1.0-2.7) L 0.8 (1.0-2.7) L Random Vancomycin Level 13.9 ug/mL LIZZETH VALDEZ Feb 15, 2017 10:53
[2017-02-15 12:00] VITALS: BP 141/51
[2017-02-15 16:41] LABS: ALANINE AMINOTRANSFERASE 18 U/L (3-33); ALBUMIN/GLOBULIN RATIO 0.8 (1.0-2.7); ANION GAP 18 (5-15); ASPARTATE AMINO TRANSFERASE 18 U/L (5-40); CARBON DIOXIDE 19 mEQ/L (20-30); CHLORIDE 119 mEQ/L (98-107); CREATININE 1.4 mg/dL (0.5-0.9); HEMOLYSIS 3; POTASSIUM 2.9 mEQ/L (3.4-4.9); SODIUM 156 mEQ/L (135-145)
[2017-02-15 16:42] VITALS: BP 133/56
[2017-02-15] MEDS ORDERED: Docusate 100mg/10ml Liq NG SCH (18:00)
[2017-02-15 19:48] LABS: ANION GAP 19 (5-15); CALCIUM 7.7 mg/dL (8.6-10.2); CARBON DIOXIDE 18 mEQ/L (20-30); CHLORIDE 118 mEQ/L (98-107); CREATININE 1.3 mg/dL (0.5-0.9); HEMOLYSIS 14; POTASSIUM 3.1 mEQ/L (3.4-4.9); SODIUM 155 mEQ/L (135-145)
[2017-02-15 20:17] VITALS: BP 127/72
[2017-02-16] VITALS: BP 153/70
[2017-02-16 04:00] VITALS: BP 114/66
[2017-02-16] MEDS: D5W w/KCl 20mEq 1,000 ML IV SCH ×2 (06:01→17:01)
[2017-02-16 08:00] VITALS: BP 135/69
[2017-02-16 08:07] LABS: ANION GAP 18 (5-15); CALCIUM 7.5 mg/dL (8.6-10.2); CARBON DIOXIDE 16 mEQ/L (20-30); CHLORIDE 112 mEQ/L (98-107); CREATININE 1.1 mg/dL (0.5-0.9); HEMOLYSIS 2; SODIUM 146 mEQ/L (135-145)
[2017-02-16] MEDS: Piperacillin/Tazobactam 3.375 GM in D5W 110 ML IVPB SCH ×2 (08:19→21:17)
[2017-02-16] MEDS: Multivitamin w/Minerals tab ORAL SCH (08:19)
[2017-02-16] MEDS: Heparin 5000 units/ml inj SUBQ SCH ×2 (08:20→21:17)
--- NOTE | 2017-02-16 08:28 | General Progress Note ---
Assessment/Plan Problem List: (1) Hypernatremia ICD Codes: E87.0 - Hyperosmolality and hypernatremia SNOMED: 63896572 (2) UTI (urinary tract infection) ICD Codes: N39.0 - Urinary tract infection, site not specified SNOMED: 81040254 (3) Dehydration ICD Codes: E86.0 - Dehydration SNOMED: 13485481 (4) Anemia ICD Codes: D64.9 - Anemia, unspecified SNOMED: 555128214 (5) Fracture of distal femur ICD Codes: S72.409A - Unspecified fracture of lower end of unspecified femur, initial encounter for closed fracture SNOMED: 170874623 (6) Severe sepsis ICD Codes: A41.9 - Sepsis, unspecified organism; R65.20 - Severe sepsis without septic shock SNOMED: 88346542 (7) Acute renal failure (ARF) ICD Codes: N17.9 - Acute kidney failure, unspecified SNOMED: 94391257 Qualifiers: Qualified Codes: N17.9 - Acute kidney failure, unspecified Status: stable, progressing Assessment/Plan ivf adjusted repeat lytes- pending iv abx follow up cultures resp care check tsh encourage pos Subjective ROS Limited/Unobtainable: No Constitutional: Reports: malaise, weakness HEENT: Reports: no symptoms Cardiovascular: Reports: no symptoms Respiratory: Reports: no symptoms Gastrointestinal/Abdominal: Reports: no symptoms Genitourinary: Reports: no symptoms Neurologic/Psychiatric: Reports: anxiety, pre-existing deficit Allergies: Coded Allergies: No Known Allergies (Unverified , 10/14/12) All Systems: reviewed and negative except above Subjective no events. more alert. stable on room air. remains combative. passed sw[place]low. having bradycardia Objective Last 24 Hour Vital Signs Date Time Temp Pulse Resp B/P Pulse Ox O2 Delivery O2 Flow Rate FiO2 02/16/17 07:31 95 Room Air 02/16/17 07:31 Room Air 02/16/17 04:00 98.1 57 20 114/66 96 Room Air 02/16/17 04:00 51 02/16/17 00:00 97.2 63 20 153/70 94 Room Air 02/15/17 23:42 63 02/15/17 20:17 96.8 51 16 127/72 96 Room Air 02/15/17 20:11 55 02/15/17 19:06 94 Room Air 21 02/15/17 19:06 Room Air 02/15/17 16:42 97.3 55 18 133/56 96 Room Air 02/15/17 16:00 57 02/15/17 12:00 56 02/15/17 12:00 96.3 57 18 141/51 94 Room Air 02/15/17 08:28 97.2 56 18 153/77 94 Room Air Intake and Output 02/15/17 02/16/17 19:00 07:00 Intake Total 610.0 ml 1279.0 ml Output Total 300 ml 600 ml Balance 310.0 ml 679.0 ml IV Total 610.0 ml 1279.0 ml Output Urine Total 300 ml 600 ml # Bowel Movements 4 3 Laboratory Tests 02/15/17 09:05: Sodium Level 158H, Potassium Level 3.2L, Chloride Level 124H, Carbon Dioxide Level 19L, Anion Gap 15, Blood Urea Nitrogen 45H, Creatinine 1.4H, Estimat Glomerular Filtration Rate , Glucose Level 105, Calcium Level 8.0L, Total Bilirubin 0.5, Aspartate Amino Transf (AST/SGOT) 20, Alanine Aminotransferase ( ALT/SGPT) 19, Alkaline Phosphatase 61, Total Protein 5.8L, Albumin 2.6L, Globulin 3.2, Albumin/Globulin Ratio 0.8L 02/15/17 15:50: Sodium Level 156H, Potassium Level 2.9L, Chloride Level 119H, Carbon Dioxide Level 19L, Anion Gap 18H, Blood Urea Nitrogen 43H, Creatinine 1.4H, Estimat Glomerular Filtration Rate , Glucose Level 96, Calcium Level 8.0L, Total Bilirubin 0.5, Aspartate Amino Transf (AST/SGOT) 18, Alanine Aminotransferase ( ALT/SGPT) 18, Alkaline Phosphatase 59, Total Protein 6.0L, Albumin 2.7L, Globulin 3.3, Albumin/Globulin Ratio 0.8L 02/15/17 19:07: Sodium Level 155H, Potassium Level 3.1L, Chloride Level 118H, Carbon Dioxide Level 18L, Anion Gap 19H, Blood Urea Nitrogen 39H, Creatinine 1.3H, Estimat Glomerular Filtration Rate , Glucose Level 110H, Calcium Level 7.7L Height (Feet): 4 Height (Inches): 11.00 Weight (Pounds): 78 General Appearance: WD/WN, alert Neck: supple Cardiovascular: regular rhythm Respiratory/Chest: lungs clear, normal breath sounds, no respiratory distress Abdomen: normal bowel sounds, non tender, soft, no organomegaly Edema: no edema noted Arm (L), no edema noted Arm (R), no edema noted Leg (L), no edema noted Leg (R), no edema noted Pedal (L), no edema noted Pedal (R), no edema noted Generalized JOSHUA SEVERINO Feb 16, 2017 08:28
[2017-02-16 08:38] LABS: BASOPHILS % (AUTO) 0.4 % (0.0-2.0); EOSINOPHILS % (AUTO) 2.3 % (0.0-3.0); LYMPHOCYTES % (AUTO) 18.1 % (20.0-45.0); MEAN CORPUSCULAR HEMOGLOBIN 28.9 PG (27.0-31.0); MEAN CORPUSCULAR HGB CONC 33.7 G/DL (32.0-36.0); MEAN CORPUSCULAR VOLUME 86 FL (80-99); MONOCYTES % (AUTO) 4.5 % (1.0-10.0); NEUTROPHILS % (AUTO) 74.7 % (45.0-75.0); PLATELET COUNT 139 K/UL (150-450); RED BLOOD COUNT 3.33 M/UL (4.20-5.40); RED CELL DISTRIBUTION WIDTH 15.7 % (11.6-14.8); WHITE BLOOD COUNT 8.9 K/UL (4.8-10.8)
[2017-02-16] MEDS: Docusate 100mg cap ORAL SCH ×2 (09:00→17:59)
[2017-02-16 09:20] LABS: ALANINE AMINOTRANSFERASE 14 U/L (3-33); ALBUMIN/GLOBULIN RATIO 0.7 (1.0-2.7); ANION GAP 18 (5-15); ASPARTATE AMINO TRANSFERASE 15 U/L (5-40); CALCIUM 7.6 mg/dL (8.6-10.2); CARBON DIOXIDE 16 mEQ/L (20-30); CHLORIDE 112 mEQ/L (98-107); CREATININE 1.1 mg/dL (0.5-0.9); HEMOLYSIS 0; POTASSIUM 3.1 mEQ/L (3.4-4.9); SODIUM 146 mEQ/L (135-145); TOTAL PROTEIN 5.4 g/dL (6.6-8.7)
[2017-02-16] MEDS ORDERED: 1/2 NS 1000ml IV ONE (09:39)
[2017-02-16] MEDS ORDERED: NS 275ml ONE (09:39)
[2017-02-16] MEDS ORDERED: Tubing IV Secondary IV ONE (09:39)
[2017-02-16 12:11] VITALS: BP 140/77
[2017-02-16 16:00] VITALS: BP 112/66
[2017-02-16 20:00] VITALS: BP 148/82
[2017-02-17] VITALS: BP 149/74
[2017-02-17] MEDS: D5W w/KCl 20mEq 1,000 ML IV SCH ×3 (00:57→21:54)
[2017-02-17 04:00] VITALS: BP 151/81
[2017-02-17 05:26] LABS: ALANINE AMINOTRANSFERASE 16 U/L (3-33); ALBUMIN/GLOBULIN RATIO 0.7 (1.0-2.7); ANION GAP 18 (5-15); ASPARTATE AMINO TRANSFERASE 18 U/L (5-40); CALCIUM 8.2 mg/dL (8.6-10.2); CARBON DIOXIDE 16 mEQ/L (20-30); CHLORIDE 113 mEQ/L (98-107); CREATININE 1.1 mg/dL (0.5-0.9); HEMOLYSIS 4; POTASSIUM 4.3 mEQ/L (3.4-4.9); SODIUM 147 mEQ/L (135-145); TOTAL PROTEIN 5.6 g/dL (6.6-8.7)
[2017-02-17 08:00] VITALS: BP 152/74
[2017-02-17] MEDS: Piperacillin/Tazobactam 3.375 GM in D5W 110 ML IVPB SCH ×2 (08:31→21:54)
[2017-02-17] MEDS: Heparin 5000 units/ml inj SUBQ SCH ×2 (08:32→21:53)
[2017-02-17] MEDS: Multivitamin w/Minerals tab ORAL SCH (08:32)
[2017-02-17] MEDS: Docusate 100mg cap ORAL SCH ×2 (08:32→18:00)
--- NOTE | 2017-02-17 08:32 | Infectious Diseases Prog Note ---
Assessment/Plan Assessment/Plan A 1. UTI 2. leucocytosis resolved 3. renal failure improving 4. Parkinson disease 5. HPN P 1. continue Zosyn Subjective ROS Limited/Unobtainable: Yes Allergies: Coded Allergies: No Known Allergies (Unverified , 10/14/12) Objective Vital Signs Last 24 Hour Vital Signs Date Time Temp Pulse Resp B/P Pulse Ox O2 Delivery O2 Flow Rate FiO2 02/17/17 08:00 60 02/17/17 06:38 96 Room Air 02/17/17 06:38 Room Air 02/17/17 04:00 96.6 60 20 151/81 97 Room Air 02/17/17 03:42 61 02/17/17 00:00 96.4 65 20 149/74 92 Room Air 02/16/17 23:41 60 02/16/17 20:00 96.6 72 20 148/82 94 Room Air 02/16/17 19:00 73 02/16/17 16:00 56 02/16/17 16:00 97.2 59 20 112/66 91 Room Air 02/16/17 12:11 97.3 57 20 140/77 98 Room Air 02/16/17 12:00 51 Height (Feet): 4 Height (Inches): 11.00 Weight (Pounds): 78 General Appearance: no acute distress HEENT: mucous membranes moist Respiratory/Chest: lungs clear Cardiovascular: normal rate Abdomen: soft, non tender Extremities: no edema Skin: other - multiple bruises Neurologic/Psychiatric: alert, responsive Microbiology Date/Time Source Procedure Growth Status 02/14/17 21:00 Wound Gram Stain - Final Resulted 02/14/17 21:00 Wound Wound Culture - Preliminary NO GROWTH AFTER 48 HOURS Resulted 02/14/17 15:00 Urine,Clean Catch Urine Culture - Preliminary Gram Negative Bacillus 1 Resulted Laboratory Tests Test 02/17/17 03:40 Sodium Level 147 mEQ/L (135-145) H Potassium Level 4.3 mEQ/L (3.4-4.9) Chloride Level 113 mEQ/L (98-107) H Carbon Dioxide Level 16 mEQ/L (20-30) L Anion Gap 18 (5-15) H Blood Urea Nitrogen 14 mg/dL (7-23) Creatinine 1.1 mg/dL (0.5-0.9) H Estimat Glomerular Filtration Rate mL/min (>60) Glucose Level 128 mg/dL (74-106) H Calcium Level 8.2 mg/dL (8.6-10.2) L Total Bilirubin 0.4 mg/dL (0.0-1.2) Aspartate Amino Transf (AST/SGOT) 18 U/L (5-40) Alanine Aminotransferase (ALT/SGPT) 16 U/L (3-33) Alkaline Phosphatase 88 U/L (35-104) Total Protein 5.6 g/dL (6.6-8.7) L Albumin 2.4 g/dL (3.5-5.2) L Globulin 3.2 g/dL Albumin/Globulin Ratio 0.7 (1.0-2.7) L Current Medications Medications (Trade) Dose Ordered Sig/Earl Route PRN Reason Start Time Stop Time Status Last Admin Dose Admin Acetaminophen (Tylenol) 650 mg Q4H PRN ORAL Mild Pain/Temp > 100.5 02/13/17 20:00 03/15/17 19:59 Albuterol/ Ipratropium (DuoNeb 0.5-3(2.5)mg/3ml) 3 ml Q4H PRN HHN Shortness of Breath 02/13/17 20:00 02/18/17 19:59 Clonidine HCl (Catapres) 0.1 mg EVERY 8 HOURS PRN ORAL For SBP > 160 02/13/17 20:00 03/15/17 19:59 Dextrose/ Electrolytes (D5W w/KCl 20mEq) 1,000 ml @ 100 mls/hr Q10H IV 02/15/17 10:00 03/17/17 09:59 02/17/17 00:57 Docusate Sodium (Colace) 100 mg TWICE A DAY ORAL 02/16/17 09:00 03/18/17 08:59 Heparin Sodium (Porcine) 5000 units 5,000 units EVERY 12 HOURS SUBQ 02/13/17 21:00 03/15/17 20:59 02/16/17 21:17 Multivitamins Therapeutic 1 ea 1 ea DAILY ORAL 02/14/17 09:00 03/16/17 08:59 02/16/17 08:19 Pantoprazole (Protonix) 40 mg DAILY ORAL 02/14/17 09:00 03/16/17 08:59 02/16/17 08:19 Piperacillin Sod/ Tazobactam Sod/ Dextrose (Zosyn/D5W) 110 ml @ 27.5 mls/hr Q12HR IVPB 02/13/17 22:30 02/20/17 22:29 02/16/17 21:17 INA HU Feb 17, 2017 08:32
--- NOTE | 2017-02-17 08:40 | General Progress Note ---
Assessment/Plan Problem List: (1) Hypernatremia ICD Codes: E87.0 - Hyperosmolality and hypernatremia SNOMED: 55471135 (2) UTI (urinary tract infection) ICD Codes: N39.0 - Urinary tract infection, site not specified SNOMED: 83849955 (3) Dehydration ICD Codes: E86.0 - Dehydration SNOMED: 47597581 (4) Anemia ICD Codes: D64.9 - Anemia, unspecified SNOMED: 912357930 (5) Fracture of distal femur ICD Codes: S72.409A - Unspecified fracture of lower end of unspecified femur, initial encounter for closed fracture SNOMED: 712250751 (6) Severe sepsis ICD Codes: A41.9 - Sepsis, unspecified organism; R65.20 - Severe sepsis without septic shock SNOMED: 02281242 (7) Acute renal failure (ARF) ICD Codes: N17.9 - Acute kidney failure, unspecified SNOMED: 12484584 Qualifiers: Qualified Codes: N17.9 - Acute kidney failure, unspecified Status: stable, progressing Assessment/Plan ivf monitor lytes iv abx follow up cultures resp care check tsh encourage pos Subjective ROS Limited/Unobtainable: No Constitutional: Reports: malaise, weakness HEENT: Reports: no symptoms Cardiovascular: Reports: no symptoms Respiratory: Reports: cough Gastrointestinal/Abdominal: Reports: difficulty swallowing Genitourinary: Reports: no symptoms Neurologic/Psychiatric: Reports: pre-existing deficit Endocrine: Reports: no symptoms Hematologic/Lymphatic: Reports: no symptoms Allergies: Coded Allergies: No Known Allergies (Unverified , 10/14/12) All Systems: reviewed and negative except above Subjective no events. more alert. stable on room air. remains combative. passed [place]. bradycardia improving Objective Last 24 Hour Vital Signs Date Time Temp Pulse Resp B/P Pulse Ox O2 Delivery O2 Flow Rate FiO2 02/17/17 08:00 60 02/17/17 06:38 96 Room Air 02/17/17 06:38 Room Air 02/17/17 04:00 96.6 60 20 151/81 97 Room Air 02/17/17 03:42 61 02/17/17 00:00 96.4 65 20 149/74 92 Room Air 02/16/17 23:41 60 02/16/17 20:00 96.6 72 20 148/82 94 Room Air 02/16/17 19:00 73 02/16/17 16:00 56 02/16/17 16:00 97.2 59 20 112/66 91 Room Air 02/16/17 12:11 97.3 57 20 140/77 98 Room Air 02/16/17 12:00 51 Intake and Output 02/16/17 02/17/17 19:00 07:00 Intake Total 1510.0 ml 1210.0 ml Output Total 800 ml 1200 ml Balance 710.0 ml 10.0 ml IV Total 1510.0 ml 1210.0 ml Output Urine Total 800 ml 1200 ml # Bowel Movements 6 3 Laboratory Tests 02/17/17 03:40: Sodium Level 147H, Potassium Level 4.3, Chloride Level 113H, Carbon Dioxide Level 16L, Anion Gap 18H, Blood Urea Nitrogen 14, Creatinine 1.1H, Estimat Glomerular Filtration Rate , Glucose Level 128H, Calcium Level 8.2L, Total Bilirubin 0.4, Aspartate Amino Transf (AST/SGOT) 18, Alanine Aminotransferase ( ALT/SGPT) 16, Alkaline Phosphatase 88, Total Protein 5.6L, Albumin 2.4L, Globulin 3.2, Albumin/Globulin Ratio 0.7L Height (Feet): 4 Height (Inches): 11.00 Weight (Pounds): 78 Objective General Appearance: WD/WN, alert Neck: supple Cardiovascular: regular rhythm Respiratory/Chest: lungs clear, normal breath sounds, no respiratory distress Abdomen: normal bowel sounds, non tender, soft, no organomegaly Edema: no edema noted Arm (L), no edema noted Arm (R), no edema noted Leg (L), no edema noted Leg (R), no edema noted Pedal (L), no edema noted Pedal (R), no edema noted Generalized JOSHUA SEVERINO Feb 17, 2017 08:40
[2017-02-17 12:11] VITALS: BP 127/68
[2017-02-17 15:59] VITALS: BP 138/77
[2017-02-17] MEDS ORDERED: Tubing IV Secondary IV ONE (16:03)
[2017-02-17 20:52] VITALS: BP 149/77
[2017-02-18] VITALS: BP 132/92
[2017-02-18 04:00] VITALS: BP 147/69
[2017-02-18 06:04] LABS: ALANINE AMINOTRANSFERASE 15 U/L (3-33); ALBUMIN/GLOBULIN RATIO 0.7 (1.0-2.7); ANION GAP 14 (5-15); ASPARTATE AMINO TRANSFERASE 17 U/L (5-40); CALCIUM 8.1 mg/dL (8.6-10.2); CARBON DIOXIDE 18 mEQ/L (20-30); CHLORIDE 110 mEQ/L (98-107); HEMOLYSIS 5; POTASSIUM 4.4 mEQ/L (3.4-4.9); SODIUM 142 mEQ/L (135-145); TOTAL PROTEIN 5.8 g/dL (6.6-8.7)
[2017-02-18 08:12] VITALS: BP 128/66
[2017-02-18] MEDS: Multivitamin w/Minerals tab ORAL SCH (08:56)
[2017-02-18] MEDS: Docusate 100mg/10ml Liq ORAL SCH ×2 (08:56→17:32)
[2017-02-18] MEDS: Piperacillin/Tazobactam 3.375 GM in D5W 110 ML IVPB SCH (08:57)
[2017-02-18] MEDS: Heparin 5000 units/ml inj SUBQ SCH ×2 (08:57→20:46)
[2017-02-18] MEDS: D5W w/KCl 20mEq 1,000 ML IV SCH ×2 (08:57→17:32)
--- NOTE | 2017-02-18 11:34 | Infectious Diseases Prog Note ---
Assessment/Plan Assessment/Plan A 1. UTI 2. leucocytosis resolved 3. renal failure improving 4. Parkinson disease 5. HPN P 1. change Zosyn to Levaquin Subjective ROS Limited/Unobtainable: Yes Allergies: Coded Allergies: No Known Allergies (Unverified , 10/14/12) Objective Vital Signs Last 24 Hour Vital Signs Date Time Temp Pulse Resp B/P Pulse Ox O2 Delivery O2 Flow Rate FiO2 02/18/17 08:12 97.2 58 19 128/66 100 Room Air 02/18/17 08:01 62 02/18/17 07:24 60 18 Room Air 21 02/18/17 04:02 55 02/18/17 04:00 96.4 63 20 147/69 100 Room Air 02/18/17 00:00 96.1 61 20 132/92 96 Room Air 02/17/17 23:48 65 02/17/17 21:38 70 20 Room Air 21 02/17/17 20:52 97.9 65 20 149/77 97 Room Air 02/17/17 19:46 61 02/17/17 19:30 Room Air 21 02/17/17 19:30 97 Room Air 21 02/17/17 16:14 66 02/17/17 15:59 97.5 66 20 138/77 96 Room Air 02/17/17 12:11 97.5 67 19 127/68 96 Room Air 02/17/17 12:11 67 Height (Feet): 4 Height (Inches): 11.00 Weight (Pounds): 78 General Appearance: no acute distress HEENT: mucous membranes moist Respiratory/Chest: lungs clear Cardiovascular: normal rate Abdomen: soft, non tender Extremities: no edema Neurologic/Psychiatric: alert, responsive Laboratory Tests Test 02/18/17 05:40 Sodium Level 142 mEQ/L (135-145) Potassium Level 4.4 mEQ/L (3.4-4.9) Chloride Level 110 mEQ/L (98-107) H Carbon Dioxide Level 18 mEQ/L (20-30) L Anion Gap 14 (5-15) Blood Urea Nitrogen 9 mg/dL (7-23) Creatinine 1.0 mg/dL (0.5-0.9) H Estimat Glomerular Filtration Rate mL/min (>60) Glucose Level 120 mg/dL (74-106) H Calcium Level 8.1 mg/dL (8.6-10.2) L Total Bilirubin 0.3 mg/dL (0.0-1.2) Aspartate Amino Transf (AST/SGOT) 17 U/L (5-40) Alanine Aminotransferase (ALT/SGPT) 15 U/L (3-33) Alkaline Phosphatase 55 U/L (35-104) Total Protein 5.8 g/dL (6.6-8.7) L Albumin 2.5 g/dL (3.5-5.2) L Globulin 3.3 g/dL Albumin/Globulin Ratio 0.7 (1.0-2.7) L Current Medications Medications (Trade) Dose Ordered Sig/Earl Route PRN Reason Start Time Stop Time Status Last Admin Dose Admin Acetaminophen (Tylenol) 650 mg Q4H PRN ORAL Mild Pain/Temp > 100.5 02/13/17 20:00 03/15/17 19:59 Albuterol/ Ipratropium (DuoNeb 0.5-3(2.5)mg/3ml) 3 ml Q4H PRN HHN Shortness of Breath 02/13/17 20:00 02/18/17 19:59 Clonidine HCl (Catapres) 0.1 mg EVERY 8 HOURS PRN ORAL For SBP > 160 02/13/17 20:00 03/15/17 19:59 Dextrose/ Electrolytes (D5W w/KCl 20mEq) 1,000 ml @ 100 mls/hr Q10H IV 02/15/17 10:00 03/17/17 09:59 02/18/17 08:57 Docusate Sodium (Colace) 100 mg TWICE A DAY ORAL 02/18/17 09:00 03/20/17 08:59 02/18/17 08:56 Heparin Sodium (Porcine) 5000 units 5,000 units EVERY 12 HOURS SUBQ 02/13/17 21:00 03/15/17 20:59 02/18/17 08:57 Multivitamins Therapeutic 1 ea 1 ea DAILY ORAL 02/14/17 09:00 03/16/17 08:59 02/18/17 08:56 Pantoprazole (Protonix) 40 mg DAILY ORAL 02/14/17 09:00 03/16/17 08:59 02/18/17 08:56 Piperacillin Sod/ Tazobactam Sod/ Dextrose (Zosyn/D5W) 110 ml @ 27.5 mls/hr Q12HR IVPB 02/13/17 22:30 02/20/17 22:29 02/18/17 08:57 INA HU Feb 18, 2017 11:34
[2017-02-18 12:00] VITALS: BP 122/59
[2017-02-18] MEDS ORDERED: Levofloxacin 500mg tab ORAL ONE (13:00)
[2017-02-18 16:00] VITALS: BP 143/74
[2017-02-18] MEDS ORDERED: LEVAQUIN250 M1 ORAL (19:02)
[2017-02-18 20:00] VITALS: BP 114/42
[2017-02-19] VITALS: BP 118/56
--- NOTE | 2017-02-19 00:30 | Discharge Summary ---
DATE OF ADMISSION: 02/13/2017 ADMISSION DIAGNOSES: 1. Respiratory failure. 2. Encephalopathy . 3. Sepsis. 4. History of dementia . 5. Possible aspiration pneumonia. DISCHARGE DIAGNOSES: 1. Respiratory failure. 2. Encephalopathy . 3. Sepsis. 4. History of dementia . 5. Possible aspiration pneumonia. HOSPITAL COURSE: The patient is an 86-year-old female, who presented with complaints of altered mental status and shortness of breath. She initially severely hypoxic and respiratory failure. She required placement on BiPAP. She was started on broad-spectrum IV antibiotics for possible aspiration pneumonia as well as urinary tract infection and sepsis. She was able to be weaned off BiPAP quickly. Urine cultures grew out Proteus pansensitive. On discharge, the patient was doing well. She was on room air. She had a swallow evaluation. Her diet was adjusted based on small bowel results. DISCHARGE MEDICATIONS: Please see discharge medication list for discharge medications. DIET: Regular diet. ACTIVITY: Ad-Tiffany. FOLLOWUP: The patient will follow up by her PMD at assisted facility in one to two days. Amado Cardoza M.D. DR: Len JOB#: [id number] CC:
[2017-02-19 04:00] VITALS: BP 148/93
[2017-02-19 08:00] VITALS: BP 144/77
[2017-02-19] MEDS: Multivitamin w/Minerals tab ORAL SCH (08:47)
[2017-02-19] MEDS: Docusate 100mg/10ml Liq ORAL SCH (08:48)
[2017-02-19] MEDS: Heparin 5000 units/ml inj SUBQ SCH (08:51)
--- NOTE | 2017-02-19 09:13 | General Progress Note ---
Assessment/Plan Problem List: (1) Hypernatremia ICD Codes: E87.0 - Hyperosmolality and hypernatremia SNOMED: 97658795 (2) UTI (urinary tract infection) ICD Codes: N39.0 - Urinary tract infection, site not specified SNOMED: 94016090 (3) Dehydration ICD Codes: E86.0 - Dehydration SNOMED: 78128498 (4) Anemia ICD Codes: D64.9 - Anemia, unspecified SNOMED: 343515732 (5) Fracture of distal femur ICD Codes: S72.409A - Unspecified fracture of lower end of unspecified femur, initial encounter for closed fracture SNOMED: 459077869 (6) Severe sepsis ICD Codes: A41.9 - Sepsis, unspecified organism; R65.20 - Severe sepsis without septic shock SNOMED: 50186614 (7) Acute renal failure (ARF) ICD Codes: N17.9 - Acute kidney failure, unspecified SNOMED: 41913054 Qualifiers: Qualified Codes: N17.9 - Acute kidney failure, unspecified Status: stable Assessment/Plan off ivf check ekg and trop check labs cards follow hold dc with svt iv abx follow up cultures resp care aspiration precautions Subjective ROS Limited/Unobtainable: No Constitutional: Reports: malaise, weakness HEENT: Reports: no symptoms Cardiovascular: Reports: irregular heart rate Respiratory: Reports: no symptoms Gastrointestinal/Abdominal: Reports: no symptoms Genitourinary: Reports: no symptoms Neurologic/Psychiatric: Reports: pre-existing deficit Endocrine: Reports: no symptoms Hematologic/Lymphatic: Reports: anemia Allergies: Coded Allergies: No Known Allergies (Unverified , 10/14/12) All Systems: reviewed and negative except above Subjective in afib/svt at 130-140. pt suddenly went into svt. no fever or chills. no sob. no distress. alert. nonverbal. Objective Last 24 Hour Vital Signs Date Time Temp Pulse Resp B/P Pulse Ox O2 Delivery O2 Flow Rate FiO2 02/19/17 08:00 97.7 69 19 144/77 98 Room Air 02/19/17 07:28 68 18 Room Air 21 02/19/17 04:00 72 02/19/17 04:00 98.1 73 20 148/93 94 Room Air 02/19/17 00:00 98.2 91 20 118/56 65 Room Air 02/18/17 23:42 91 02/18/17 20:00 92 02/18/17 20:00 96.9 73 20 114/42 94 Room Air 02/18/17 19:12 68 18 Room Air 21 02/18/17 16:00 97.0 69 22 143/74 95 Room Air 02/18/17 15:30 62 02/18/17 12:00 97.0 63 20 122/59 95 Room Air 02/18/17 11:38 58 Intake and Output 02/18/17 02/19/17 19:00 07:00 Intake Total 1340 ml Output Total 1200 ml 700 ml Balance 140 ml -700 ml Intake Oral 240 ml IV Total 1100 ml Output Urine Total 1200 ml 700 ml # Bowel Movements 4 Height (Feet): 4 Height (Inches): 11.00 Weight (Pounds): 78 Objective General Appearance: WD/WN, alert Neck: supple Cardiovascular: regular rhythm but tachy Respiratory/Chest: lungs clear, normal breath sounds, no respiratory distress Abdomen: normal bowel sounds, non tender, soft, no organomegaly Edema: no edema noted Arm (L), no edema noted Arm (R), no edema noted Leg (L), no edema noted Leg (R), no edema noted Pedal (L), no edema noted Pedal (R), no edema noted Generalized JOSHUA SEVERINO Feb 19, 2017 09:12
[2017-02-19] MEDS ORDERED: Diltiazem 25mg/5ml IV ONE (09:30)
[2017-02-19 11:23] LABS: BASOPHILS % (AUTO) 0.4 % (0.0-2.0); EOSINOPHILS % (AUTO) 1.6 % (0.0-3.0); LYMPHOCYTES % (AUTO) 11.1 % (20.0-45.0); MEAN CORPUSCULAR HEMOGLOBIN 28.6 PG (27.0-31.0); MEAN CORPUSCULAR VOLUME 82 FL (80-99); MEAN PLATELET VOLUME 7.3 FL (6.5-10.1); MONOCYTES % (AUTO) 5.6 % (1.0-10.0); NEUTROPHILS % (AUTO) 81.4 % (45.0-75.0); PLATELET COUNT 252 K/UL (150-450); RED BLOOD COUNT 3.82 M/UL (4.20-5.40); RED CELL DISTRIBUTION WIDTH 15.7 % (11.6-14.8); WHITE BLOOD COUNT 9.6 K/UL (4.8-10.8)
[2017-02-19 11:44] LABS: TROPONIN I < 0.30 ng/mL (<=0.30)
[2017-02-19 11:47] LABS: ALANINE AMINOTRANSFERASE 14 U/L (3-33); ALBUMIN/GLOBULIN RATIO 0.7 (1.0-2.7); ANION GAP 18 (5-15); ASPARTATE AMINO TRANSFERASE 18 U/L (5-40); CALCIUM 8.8 mg/dL (8.6-10.2); CARBON DIOXIDE 18 mEQ/L (20-30); CHLORIDE 109 mEQ/L (98-107); CREATININE 1.1 mg/dL (0.5-0.9); HEMOLYSIS 3; POTASSIUM 3.5 mEQ/L (3.4-4.9); SODIUM 145 mEQ/L (135-145); TOTAL PROTEIN 6.2 g/dL (6.6-8.7)
[2017-02-19 12:00] VITALS: BP 94/55
--- NOTE | 2017-02-19 12:10 | Infectious Diseases Prog Note ---
Assessment/Plan Assessment/Plan antibiotics : levoquin A 1. proteus UTI s/p rx 2. leucocytosis resolved 3. renal failure resolved 4. Parkinsons disease 5. HTN P 1. d/c levoquin 2. observe off antibiotics Subjective ROS Limited/Unobtainable: Yes Allergies: Coded Allergies: No Known Allergies (Unverified , 10/14/12) Objective Vital Signs Last 24 Hour Vital Signs Date Time Temp Pulse Resp B/P Pulse Ox O2 Delivery O2 Flow Rate FiO2 02/19/17 11:29 85 02/19/17 08:00 140 02/19/17 08:00 97.7 69 19 144/77 98 Room Air 02/19/17 07:28 68 18 Room Air 21 02/19/17 04:00 72 02/19/17 04:00 98.1 73 20 148/93 94 Room Air 02/19/17 00:00 98.2 91 20 118/56 65 Room Air 02/18/17 23:42 91 02/18/17 20:00 92 02/18/17 20:00 96.9 73 20 114/42 94 Room Air 02/18/17 19:12 68 18 Room Air 21 02/18/17 16:00 97.0 69 22 143/74 95 Room Air 02/18/17 15:30 62 Height (Feet): 4 Height (Inches): 11.00 Weight (Pounds): 78 Respiratory/Chest: lungs clear Cardiovascular: normal rate, regular rhythm, no gallop/murmur Abdomen: soft, non tender Extremities: no edema Laboratory Tests Test 02/19/17 10:30 White Blood Count 9.6 K/UL (4.8-10.8) Red Blood Count 3.82 M/UL (4.20-5.40) L Hemoglobin 10.9 G/DL (12.0-16.0) L Hematocrit 31.2 % (37.0-47.0) L Mean Corpuscular Volume 82 FL (80-99) Mean Corpuscular Hemoglobin 28.6 PG (27.0-31.0) Mean Corpuscular Hemoglobin Concent 35.0 G/DL (32.0-36.0) Red Cell Distribution Width 15.7 % (11.6-14.8) H Platelet Count 252 K/UL (150-450) Mean Platelet Volume 7.3 FL (6.5-10.1) Neutrophils (%) (Auto) 81.4 % (45.0-75.0) H Lymphocytes (%) (Auto) 11.1 % (20.0-45.0) L Monocytes (%) (Auto) 5.6 % (1.0-10.0) Eosinophils (%) (Auto) 1.6 % (0.0-3.0) Basophils (%) (Auto) 0.4 % (0.0-2.0) Sodium Level 145 mEQ/L (135-145) Potassium Level 3.5 mEQ/L (3.4-4.9) Chloride Level 109 mEQ/L (98-107) H Carbon Dioxide Level 18 mEQ/L (20-30) L Anion Gap 18 (5-15) H Blood Urea Nitrogen 9 mg/dL (7-23) Creatinine 1.1 mg/dL (0.5-0.9) H Estimat Glomerular Filtration Rate mL/min (>60) Glucose Level 123 mg/dL (74-106) H Calcium Level 8.8 mg/dL (8.6-10.2) Total Bilirubin 0.3 mg/dL (0.0-1.2) Aspartate Amino Transf (AST/SGOT) 18 U/L (5-40) Alanine Aminotransferase (ALT/SGPT) 14 U/L (3-33) Alkaline Phosphatase 61 U/L (35-104) Troponin I < 0.30 ng/mL (<=0.30) Total Protein 6.2 g/dL (6.6-8.7) L Albumin 2.7 g/dL (3.5-5.2) L Globulin 3.5 g/dL Albumin/Globulin Ratio 0.7 (1.0-2.7) L LIZZETH VALDEZ Feb 19, 2017 12:10
[2017-02-19] MEDS ORDERED: NS 275ml ONE (12:43)
--- NOTE | 2017-02-20 03:30 | Progress Note ---
DATE: 02/19/2017 CARDIOLOGY PROGRESS NOTE SUBJECTIVE: The patient developed rapid atrial fibrillation. No precipitating events. Heart rate is above 140. The patient had no fever or chills. No shortness of breath. No apparent chest pain. OBJECTIVE: VITAL SIGNS: Blood pressure 144/77, pulse 140, respiratory rate 18, and afebrile. LUNGS: Coarse breath sounds. Scattered rhonchi. HEART: Irregularly irregular rhythm. Rapid rate. Normal S1 and S2. ABDOMEN: Soft. EXTREMITIES: Trace edema. LABORATORY DATA: White count 9.6 and hemoglobin 10.9. Potassium 3.5, BUN 9, and creatinine 1.1. Troponin is negative. Albumin is 2.7. IMPRESSION: 1. Paroxysmal atrial fibrillation. 2. Supraventricular tachycardia. 3. Sepsis. 4. Urinary tract infection. 5. Acute on chronic diastolic congestive heart failure. 6. Cerebrovascular disease with dementia. PLAN: 1. Intravenous diltiazem for rate control. 2. No plan for anticoagulation. 3. Additional potassium supplementation. 4. Consider additional beta blockade. Chacho Marinelli M.D. DR: MAIKEL JOB#: [id number] CC:
--- NOTE | 2017-02-21 13:51 | Diagnostic Imaging Report ---
Indications: Dysphagia Technique: Multiphasic barium dysphagia study was performed under fluoroscopic control with Yana Portillo speech pathologist. Cinegraphic images were obtained. Total fluoroscopy time: 293.6 sec Dose-area product: 0.27 mGy-m2 Findings: Comparison: None Oral and pharyngeal phases of swallowing demonstrate multiple mechanical abnormalities, as enumerated on speech pathology evaluation form. The patient demonstrates tracheal aspiration of thin liquid barium not ejected despite eliciting cough reflex; superficial laryngeal penetration of honey and nectar thickness barium without aspiration, ejected. There is moderate barium coating of pharyngeal structures after swallowing. Esophageal phase of swallowing demonstrates barium pooling without retrograde propagation. IMPRESSION: Abnormal oropharyngeal mechanics with tracheal aspiration of thin liquid barium not cleared; superficial laryngeal penetration of nectar and honey thickness barium. Moderate post swallow pharyngeal residue Esophageal dysmotility. Recommendation per speech pathology evaluation form.
== END 2017-02-19 12:44 | DRG 871 ==
LOC: EDBD 16:06 → EMR 16:35 → 2W 16:40 → EDBEDREQ 16:52 → 2W 19:59
PROC: 5A09357 Assistance with Respiratory Ventilation, Less than 24 Consecutive Hours, Continuous Positive Airway Pressure (ICD-10-PCS; principal; 2017-02-13)
DX: A41.9 Sepsis, unspecified organism (principal); J69.0 Pneumonitis due to inhalation of food and vomit; N17.0 Acute kidney failure with tubular necrosis; J96.91 Respiratory failure, unspecified with hypoxia; R65.21 Severe sepsis with septic shock; G92 Toxic encephalopathy; E87.0 Hyperosmolality and hypernatremia; I50.33 Acute on chronic diastolic (congestive) heart failure; N39.0 Urinary tract infection, site not specified; S72.409A Unspecified fracture of lower end of unspecified femur, initial encounter for closed fracture; G20 Parkinson's disease; F02.80 Dementia in other diseases classified elsewhere, unspecified severity, without behavioral disturbance, psychotic disturbance, mood disturbance, and anxiety; F29 Unspecified psychosis not due to a substance or known physiological condition; E86.0 Dehydration; E87.8 Other disorders of electrolyte and fluid balance, not elsewhere classified; E11.65 Type 2 diabetes mellitus with hyperglycemia; I51.3 Intracardiac thrombosis, not elsewhere classified; I67.9 Cerebrovascular disease, unspecified; I10 Essential (primary) hypertension; X58.XXXA Exposure to other specified factors, initial encounter; B96.4 Proteus (mirabilis) (morganii) as the cause of diseases classified elsewhere; I48.91 Unspecified atrial fibrillation; D63.8 Anemia in other chronic diseases classified elsewhere
CPT/HCPCS: 36415; 36600; 71010; 74230; 80048; 80053; 80202; 81003; 82550; 82553; 82803; 83605; 83880; 84443; 84484; 85007; 85025; 87040; 87070; 87081; 87086; 87181; 87205; 93005; 94660; 94664; 94760; J8499

== ENCOUNTER 2018-07-14 18:50 | Emergency (ER) | payer MEDICAID, MEDICARE ==
[~2018-07-14] VITALS: Ht 157.5 cm; Wt 52.2 kg
[~2018-07-14 18:50] MED LIST changes: +ACETAMINOPHEN325 M1 ORAL; +ALENDRONATE SOD70 MG ORAL; +CALCIUM 500 +1 EAC5 PO; +CATAPRES0.1 MG ORAL; +DOCUSATE SODIU100 MG ORAL; +LEVAQUIN250 M1 ORAL; +MILK OF MA2400 MG/10 ORAL; +PRO-STAT AWC LI30 ML PO
[2018-07-14] MEDS ORDERED: PROSTATE PQ TA1 EACH PO (19:17)
[2018-07-14] MEDS ORDERED: VITAMIN C250 MG ORAL (19:17)
[2018-07-14] MEDS ORDERED: PANTOPRAZOLE SO40 MG ORAL (19:17)
[2018-07-14] MEDS ORDERED: CALCIUM 500 +1 EAC6 PO (19:17)
[2018-07-14] MEDS ORDERED: ALBUTEROL2.5 MG/3 M INH (19:17)
[2018-07-14 20:10] VITALS: BP 175/78
[2018-07-14 21:18] VITALS: BP 160/90
--- NOTE | 2018-07-14 22:38 | Emergency Room Report ---
History of Present Illness General Chief Complaint: Upper Extremity Injury Source: Medical Record Present Illness HPI Patient sent in for x-rays revealing fractures of fingers of left hand. Bruising was noted at SNF, no observed trauma. She will not rate pain. Patient with dementia and other history unobtainable. H/O osteoporosis and prior knee fracture. Prior admission January 2017. D/C dx: 1. Respiratory failure. 2. Encephalopathy . 3. Sepsis. 4. History of dementia . 5. Possible aspiration pneumonia. Allergies: Coded Allergies: No Known Allergies (Unverified , 10/14/12) Patient History Limited by: medical condition Past Medical History: see triage record, old chart reviewed Social History Narrative SNF Last Menstrual Period: n/a Reviewed Nursing Documentation: PMH: Agreed; PSxH: Agreed Nursing Documentation-PMH Past Medical History: No History, Except For Hx Cardiac Problems: Yes - anemia Hx Hypertension: Yes Hx Cancer: No Hx Neurological Problems: Yes - Parkinsons Hx Dementia: Yes Hx Paralysis: Yes Review of Systems All Other Systems: limited Physical Exam Vital Signs Date Time Temp Pulse Resp B/P (MAP) Pulse Ox O2 Delivery O2 Flow Rate FiO2 07/14/18 19:04 96.6 70 18 175/78 98 Room Air Sp02 EP Interpretation: reviewed, normal General Appearance: no apparent distress, Chronically Ill Head: normocephalic, atraumatic Eyes: bilateral eye normal inspection, bilateral eye PERRL ENT: hearing grossly normal, normal voice, moist mucus membranes - poor dentition Neck: full range of motion, supple Respiratory: lungs clear, no respiratory distress, speaking full sentences Cardiovascular #1: regular rate, rhythm Cardiovascular #2: 2+ radial (L) - good cap fill Gastrointestinal: normal inspection, non tender Genitourinary: no CVA tenderness Musculoskeletal: swelling - L hand with no deformity aside from MCP enlargement and tendency to keep fingers in fist, other - contractures LE Neurologic: alert, responsive, motor weakness Psychiatric: mood/affect normal - poorly cooperative, beligerant with staff Skin: no rash, hematoma - L hand dorsum more over mid to ulnar surface Medical Decision Making Diagnostic Impression: Primary Impression: Hand fracture, left Qualified Codes: S62.92XA - Unspecified fracture of left wrist and hand, initial encounter for closed fracture Additional Impression: Dementia Qualified Codes: F03.91 - Unspecified dementia with behavioral disturbance ER Course Patient with outside xrays suggestive of hand fracture. Need to repeat films here. Xrays with possible fractures of proximal phalynges of L hand. Splint applied by tech. Position adequate and distal neuro vasc checked and normal by me. Patient stable for outpatient observation and treatment. Other X-Ray Diagnostic Results Other X-Ray Diagnostic Results : X-Ray ordered: L hand # of Views/Limited Vs Complete: 3 View Indication: Other EP Interpretation: Yes Interpretation: no dislocation, no soft tissue swelling, other - canot see fx's - but suggested prox phalynges with non-displaced fractures Impression: Other Electronically Signed by: Chacho Flores MD Last Vital Signs Date Time Temp Pulse Resp B/P (MAP) Pulse Ox O2 Delivery O2 Flow Rate FiO2 07/14/18 21:18 98.0 78 16 160/90 99 Room Air Status: improved Disposition: XFER SNF Condition: Improved Scripts Acetaminophen (Tylenol) 325 Mg Tablet 650 MG ORAL Q6H PRN for Prn Pain/Headache/Temp > 101, #20 TAB 0 Refills Prov: Chacho Flores MD 07/14/18 Chacho Flores MD Jul 14, 2018 22:38
[2018-07-14] MEDS ORDERED: TYLENOL325 MG ORAL (22:41)
--- NOTE | 2018-07-15 11:33 | Diagnostic Imaging Report ---
Indication: Trauma, pain Technique: 3 views left hand Comparison: none Findings: Exam is very limited. Per technologist, patient unable to cooperate optimally with positioning. All but the first and second digits are contracted, limiting evaluation of such. Bones are osteoporotic. On the AP view, there is suggestion of a corner fracture of the base of the second proximal phalanx. On the lateral view, there also suggestive fractures of the third and or fourth proximal phalanges No dislocations. There are degenerative changes of the second proximal and distal interphalangeal joints. Impression: Limited borderline nondiagnostic exam, as described. Suspect fractures of the second, as well as the third and/or fourth proximal phalanges. Correlate with clinical findings This essentially agrees with the findings reported in the electronic medical record by the ER physician
== END 2018-07-14 21:18 ==
LOC: EDBD 18:50 → EMR 19:18
DX: S62.102A Fracture of unspecified carpal bone, left wrist, initial encounter for closed fracture (principal); X58.XXXA Exposure to other specified factors, initial encounter; Y92.199 Unspecified place in other specified residential institution as the place of occurrence of the external cause; G20 Parkinson's disease; F02.80 Dementia in other diseases classified elsewhere, unspecified severity, without behavioral disturbance, psychotic disturbance, mood disturbance, and anxiety
CPT/HCPCS: 99283